=== PATIENT | female | born 1995 | race African-American/Black ===

== ENCOUNTER 2022-08-23 02:28 | Emergency (ER) | payer MEDICAID ==
[~2022-08-23] VITALS: Ht 162.6 cm; Wt 51.0 kg
[2022-08-23 02:43] VITALS: BP 107/67; PULSE 67; RESP 18; TEMP 98.5; O2SAT 100
[2022-08-23] MEDS ORDERED: AMOX1TAB16 MT (03:03)
[2022-08-23] MEDS ORDERED: TETANUS, DIPHTHERIA, PERTUSSIS VAC/PF 0.5ML (>10YR OLD) IM ONE (03:15)
== END 2022-08-23 03:23 | disposition home or self-care (01) ==
LOC: ER 02:28
DX: M79.651 Pain in right thigh (principal); D64.9 Anemia, unspecified; Z90.49 Acquired absence of other specified parts of digestive tract
CPT/HCPCS: 90471; 90715; 99283